=== PATIENT | male | born 1995 | race Caucasian/White ===

== ENCOUNTER 2022-01-18 16:43 | Emergency (ER) | payer MEDICAID, OTHER ==
[2022-01-18 16:49] VITALS: O2SAT 97
--- NOTE | 2022-01-18 16:59 | ERPHSYRPT ---
- History of Present Illness Time Seen by Provider: 01/18/22 17:05 Source: patient Exam Limitations: no limitations Patient Subjective Stated Complaint: pt here for redness to right eye for 2 days now after jumping through a glass window. and then swam in a [place], pt states he has no blurred vision or pain, Triage Nursing Assessment: pt alert, deconed due to putting bleach on self to days ago too, has redness to right eye, with abrasion to corner of right eye and bruising around eye, pt denies any pain, or blurred vison Physician History: This is a 26-year-old overweight male patient who 2 days ago jumped through a window and suffered laceration to the inner aspect of his upper eyelid. He has had weeping from the site. He is also noted to have some lateral eye hemorrhage present. He was brought into the emergency room by law enforcement and will be leaving to go to [facility] directly from here. Law enforcement wanted him evaluated prior to transporting him to [facility] Timing/Duration: day(s) (2) Location: right eye Severity: mild Apparent Injury: yes Associated Symptoms: other (2 to 3 mL laceration medial aspect upper eyelid right eye. Conjunctival hemorrhage lateral aspect right eye) Visual Assistive Devices: None Chemical Exposure: No Trauma: Yes Welding Arc/Tanning Bed Exposure: No Allergies/Adverse Reactions: No Known Drug Allergies Allergy (Unverified 01/18/22 16:47) Home Medications: No Reportable Medications [No Reported Medications] 01/18/22 [History] Hx Tetanus, Diphtheria Vaccination/Date Given: Yes (2 years ago) Hx Influenza Vaccination/Date Given: Yes Hx Pneumococcal Vaccination/Date Given: No Immunizations Up to Date: Yes Travel Risk - International Travel Have you traveled outside of the country in past 3 weeks: No - Coronavirus Screening Are you exhibiting any of the following symptoms?: No Close contact with a COVID-19 positive Pt in past 14-21 Days: No - Vaccine Status Have you recieved a Covid-19 vaccination: No - Review of Systems Constitutional: No Symptoms Eyes: Other (Conjunctival hemorrhage lateral aspect right eye) Ears, Nose, & Throat: No Symptoms Respiratory: No Symptoms Cardiac: No Symptoms Abdominal/Gastrointestinal: No Symptoms Genitourinary Symptoms: No Symptoms Musculoskeletal: No Symptoms Skin: No Symptoms Neurological: No Symptoms Psychological: No Symptoms Endocrine: No Symptoms Hematologic/Lymphatic: No Symptoms Immunological/Allergic: No Symptoms All Other Systems: Reviewed and Negative - Past Medical History Pertinent Past Medical History: No - Past Surgical History Past Surgical History: No - Social History Smoking Status: Current every day smoker Exposure to second hand smoke: Yes Drug Use: marijuana, other Patient Lives Alone: No ([facility]) - Nursing Vital Signs Nursing Vital Signs: Initial Vital Signs Temperature 97.2 F 01/18/22 16:48 Pulse Rate 102 H 01/18/22 16:48 Respiratory Rate 18 01/18/22 16:48 Blood Pressure 145/84 01/18/22 16:48 O2 Sat by Pulse Oximetry 97 01/18/22 16:48 Pain Scale Pain Intensity 0 - Physical Exam General Appearance: no apparent distress, alert Eye Exam: right eye: conjunctival hemorrhage (Lateral aspect), other (No evidence of foreign body or corneal abrasion. 2 to 3 mm vertically oriented laceration upper eyelid inner aspect right eye lid), left eye: normal inspecti on, bilateral eye: PERRL, EOMI Ears, Nose, Throat Exam: normal ENT inspection, moist mucous membranes Neck Exam: normal inspection, non-tender, supple, full range of motion Respiratory Exam: normal breath sounds, lungs clear, airway intact, No chest tenderness, No respiratory distress Cardiovascular Exam: regular rate/rhythm, normal heart sounds, normal peripheral pulses Gastrointestinal Exam: soft, normal bowel sounds, No tenderness Extremity Exam: normal inspection, normal range of motion, pelvis stable Neurologic: alert, oriented x 3, cooperative, 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, normal mood/affect, nml cerebellar function, nml station & gait, sensation nml Skin Exam: normal color, warm, dry Lymphatic: No adenopathy SpO2 Interpretation: normal SpO2: 97 O2 Delivery: Room Air - Course Nursing assessment & vital signs reviewed: Yes Ordered Tests: Medication Summary Discontinued Medications Generic Name Dose Route Start Last Admin Trade Name Freq PRN Reason Stop Dose Admin Doxycycline Hyclate 100 mg 01/18/22 17:10 Doxycycline Hyclate 100 Mg Tablet PO 01/18/22 17:11 STAT ONE - Progress Progress: unchanged Progress Note: 01/18/22 17:20 I wrote a prescription for doxycycline 100 mg 1 twice a day for 7 days to help prevent infection. I expressed to the law enforcement the need for him to follow-up with an first mate tomorrow. Counseled pt/family regarding: diagnosis, need for follow-up - Departure Departure Disposition: Home Clinical Impression: Eyelid laceration, right, Conjunctival hemorrhage, right eye Condition: Stable Critical Care Time: No Additional Instructions: Take the antibiotics as prescribed. Call first mate tomorrow, 01/19/2022, in the morning to make arrangements for follow-up evaluation and management.
[2022-01-18] MEDS ORDERED: Vibramycin 100 MG ONE (17:16)
[2022-01-18] MEDS: Vibramycin 100 MG PO ONE (17:18)
[2022-01-18 17:29] VITALS: BP 142/86; PULSE 76
== END 2022-01-18 17:37 ==
LOC: EEVIPCON 16:43 → ED 16:43
DX: S01.111A Laceration without foreign body of right eyelid and periocular area, initial encounter (principal); H11.31 Conjunctival hemorrhage, right eye; W13.4XXA Fall from, out of or through window, initial encounter; W01.110A Fall on same level from slipping, tripping and stumbling with subsequent striking against sharp glass, initial encounter; Z28.310 Unvaccinated for COVID-19; Z72.0 Tobacco use
CPT/HCPCS: 99281; A9270-GY